=== PATIENT | female | born 1985 | race Caucasian/White ===

== ENCOUNTER 2018-11-02 16:56 | Emergency (ER) | payer OTHER ==
[~2018-11-02] VITALS: Ht 154.9 cm; Wt 71.8 kg
[2018-11-02 17:05] VITALS: BP 125/89
--- NOTE | 2018-11-02 17:10 | NUR ---
PT AMBULATES BACK TO THE LOBBY
== END 2018-11-02 18:08 | disposition left against medical advice (07) ==
LOC: MED 16:56
DX: R10.31 Right lower quadrant pain (principal); Z53.21 Procedure and treatment not carried out due to patient leaving prior to being seen by health care provider